=== PATIENT | male | born 1975 | race Caucasian/White ===

== ENCOUNTER 2019-02-28 17:58 | Emergency (ER) | payer OTHER ==
[~2019-02-28] VITALS: Ht 175.3 cm; Wt 102.3 kg
[2019-02-28 18:00] VITALS: Ht 175.3 cm; Wt 102.3 kg
[2019-02-28] MEDS ORDERED: GLUCOPHAGE1000 MG PO (18:05)
[2019-02-28] MEDS ORDERED: GEMFIBROZIL600 MG PO (18:05)
[2019-02-28] MEDS ORDERED: STRATTERA25 MG PO (18:06)
[2019-02-28 18:46] LABS: APPEARANCE CLEAR (CLEAR); BILIRUBIN NEGATIVE (NEGATIVE); COLOR YELLOW (YELLOW); GLUCOSE 250 mg/dL (NEGATIVE); KETONE NEGATIVE (NEGATIVE); NITRITE NEGATIVE (NEGATIVE); PROTEIN NEGATIVE (NEGATIVE); SPECIFIC GRAVITY 1.015 (1.005-1.020); UROBILINOGEN NORMAL (NORMAL)
[2019-02-28 18:47] LABS: BACTERIA FEW /hpf (NONE SEEN); RED CELLS - URINE 0-5 /hpf (0-5); WHITE CELLS - URINE RARE /hpf (0-5)
[2019-02-28 19:37] LABS: BASOPHILS 0.2 % (0-2); EOSINOPHILS 1.5 % (0-7); HEMATOCRIT 41.5 % (42.0-54.0); HEMOGLOBIN 14.8 g/dL (13.5-17.5); IMMATURE GRANULOCYTES 0.2 % (0-5); MCH 28.6 pg (26.0-34.0); MCHC 35.7 g/dL (31.0-37.0); MCV 80.1 fL (80.0-100.0); MEAN PLATELET VOLUME 10.7 fL (7.4-10.4); MONOCYTES 9.4 % (2-11); NEUTROPHILS 80.7 % (40-80); PLATELET COUNT 186 10x3/uL (130-400); RBC 5.18 10x6/uL (4.20-6.10); RDW 12.6 % (11.5-14.5); WBC 9.1 10x3/uL (4.8-10.8)
[2019-02-28 19:53] LABS: ANION GAP 13.9 mmol/L (8-16); BILIRUBIN - TOTAL 0.51 mg/dL (0.2-1.3); CALCIUM 9.7 mg/dL (8.5-10.1); CREATININE - SERUM 1.3 mg/dL (0.6-1.3); POTASSIUM - SERUM 3.9 mmol/L (3.5-5.1); PROTEIN - SERUM 7.6 g/dL (6.4-8.2)
[2019-02-28] MEDS ORDERED: TORADOL10 MG PO (20:16)
[2019-02-28] MEDS ORDERED: HYDROCODONE-A1 UDTA2 PO (20:23)
[2019-02-28 20:44] VITALS: BP 145/81
== END 2019-02-28 20:45 | disposition home or self-care (01) ==
LOC: D.ER 17:58
PROVIDERS: Emergency Medicine
DX: N23 Unspecified renal colic (principal); R91.8 Other nonspecific abnormal finding of lung field

== ENCOUNTER 2020-03-21 13:44 | Emergency (ER) | payer OTHER ==
[~2020-03-21] VITALS: Ht 175.3 cm; Wt 102.3 kg
[~2020-03-21 13:44] MED LIST: GEMFIBROZIL600 MG PO; GLUCOPHAGE1000 MG PO; HYDROCODONE-A1 UDTA2 PO; STRATTERA25 MG PO; TORADOL10 MG PO
[2020-03-21 13:50] VITALS: Ht 175.3 cm; Wt 102.3 kg
[2020-03-21] MEDS ORDERED: CLEOCIN HCL300 MG PO (15:19)
[2020-03-21] MEDS ORDERED: HYDROCODON-ACE1 EAC7 PO (15:19)
[2020-03-21 15:37] VITALS: BP 122/69
== END 2020-03-21 15:37 | disposition home or self-care (01) ==
LOC: D.ER 13:44
DX: S81.831A Puncture wound without foreign body, right lower leg, initial encounter (principal); X58.XXXA Exposure to other specified factors, initial encounter; E11.9 Type 2 diabetes mellitus without complications; Z79.84 Long term (current) use of oral hypoglycemic drugs; I10 Essential (primary) hypertension